=== PATIENT | female | born 1975 | race Two or more races ===

== ENCOUNTER 2025-03-29 06:50 | Day surgery (SDC) | payer OTHER, SELFPAY ==
--- NOTE | 2025-03-28 06:30 | EKG_ITS ---
[facility] Test Date: 2025-03-28 Pat Name: PETER COPELAND Department: Room: - Gender: Female Press Operator: FREEDOM : 1975 Requested By: Robert Florentino Order Number: [id number] Reading MD: Robert Florentino Measurements Intervals [place] Rate: 46 P: 50 DE: 134 QRS: 42 QRSD: 92 T: 68 QT: 478 QTc: 420 Interpretive Statements SINUS BRADYCARDIA No previous ECG available for comparison /[id number]/[id number]
[2025-03-28 07:37] VITALS: BMI 36.1
[2025-03-28 08:32] LABS: Basophils % (Auto) 1 % (0-2.5); Eosinophils # (Auto) 0.3 Thou/mm3 (0.0-0.5); Eosinophils % (Auto) 4 % (0-10); Hematocrit 36.1 % (36.0-46.0); Hemoglobin 12.1 g/dL (12.0-16.0); Immature Granulocytes % (Auto) 0 % (0-0); Immature Granulocytes Auto 0.02 Thou/mm3 (0.00-0.00); Lymphocytes # (Auto) 1.8 Thou/mm3 (1.0-4.8); Lymphocytes % (Auto) 28 % (10-50); Mean Corpuscular HGB Conc 33.5 g/dl (31.0-37.0); Mean Corpuscular Hemoglobin 28.9 pg (25.0-35.0); Mean Corpuscular Volume 86 fL (80-100); Monocytes # (Auto) 0.5 Thou/mm3 (0.0-0.8); Monocytes % (Auto) 7 % (0-12); Neutrophils # (Auto) 3.9 Thou/mm3 (1.8-7.7); Neutrophils % (Auto) 60 % (37-80); Nucleated Red Blood Cell % 0 /100 WBC (0); Platelet Count 305 Thou/mm3 (140-440); RDW Standard Deviation 43.4 fL (36.4-46.3); Red Blood Count 4.18 Miln/mm3 (4.00-5.20); White Blood Count 6.5 Thou/mm3 (3.6-11.0)
[2025-03-28 09:17] LABS: Alanine Aminotransferase 16 U/L (10-49); Albumin, Serum 4.1 gm/dL (3.5-5.0); Albumin/Globulin Ratio 1.5 (1.2-2.2); Alkaline Phosphatase 114 U/L (46-116); Anion Gap 8 (7-16); Aspartate Amino Transferase 18 U/L (0-34); BUN/Creatinine Ratio 18 Ratio (12-20); Bilirubin,Total 0.4 mg/dL (0.3-1.2); Blood Urea Nitrogen 14 mg/dL (9-23); Calcium 8.5 mg/dL (8.3-10.6); Calcium (Corrected) 8.5 mg/dL (8.5-10.1); Carbon Dioxide 27.8 mMol/L (20.0-31.0); Chloride 105 mMol/L (98-107); Creatinine (Component) 0.8 mg/dL (0.6-1.3); Estimated Creatinine Clearance 86.6 mL/min (>60); Globulin 2.8 gm/dL (2.3-3.5); Glucose 99 mg/dL (74-106); Osmolality,Calculated 281 (275-295); Sodium 141 mMol/L (136-145); Total Protein 6.9 gm/dL (5.7-8.2); eGFR > 60 See Note
[2025-03-28 10:55] LABS: Hepatitis A Antibody IgM Non Reactive (Non React); Hepatitis B Surface Antigen Non Reactive (Non React)
[2025-03-28 10:56] LABS: Hepatitis B Core Antibody IgM Non Reactive (Non React); Hepatitis C Antibody Non Reactive (Non React)
[2025-03-28 11:55] LABS: HIV (1&2) Antibody Rapid Non-Reactive
[2025-03-29] VITALS (9 sets, daily range): BP systolic 142–179; BP diastolic 79–95; PULSE 48–61; RESP 12–20; TEMP 36.2–36.4; O2SAT 95–100; BMI 36.2
--- NOTE | 2025-03-29 07:20 | CHAP ---
Visited with patient and had prayer.
--- NOTE | 2025-03-29 10:23 | SUR.PHASEI ---
pt received from OR in recovery bay 7. pt asleep but responds to voice, breathing unlabored on oxymask 8l. v/s stable. pt dressing peripad cdi. report received from Corky CID and Colette LERMA.
[2025-03-29] MEDS: ACETAMINOPHEN IVPB 1,000 MG/100 ML VIAL 250 MG IV (10:44)
--- NOTE | 2025-03-29 10:49 | SUR.PHASEI ---
pt able to tolerate oral fluids without difficulty swallowing or nausea/vomiting.
--- NOTE | 2025-03-29 11:59 | PD.GYNPROC ---
Operative Note - [facility] Procedure Date of procedure: 03/29/25 Procedure Performed: Cervical polypectomy, diagnostic hysteroscopy, fractional D&C Indication: Postmenopausal bleeding Cervical large polyp Pre-Op diagnosis: Same Post-Op diagnosis: Same Anesthesia type: General Procedure description: The patient was seen prior to surgery. The potential benefits and risks of the procedure, the likelihood of success, and the problems related to recuperation have been discussed with patient who agrees to proceed. The possible results of nontreatment and significant alternatives to the proposed procedure have also been explained, along with the risks and benefits of the alternatives. Risks and benefits of chosen anesthetic/sedation and possible use of blood/blood products (if appropriate) were discussed.The patient was identified as Angelika Parks and the procedure verified. A time out was held reviewing the patient identifiers, procedure planned and allergies. At this point the procedure was begun. The patient was positioned and prepped in routine fashion in the dorsal lithotomy position using yellowfin stirups. On examination under anesthesia, there was a large exophytic polyp from the cervix protruding out almost the size of 4 to 5 cm. The uterus along with anterior vaginal wall prolapse was noted stage III pelvic organ prolapse. Bladder was drained by catheter. A weighted speculum was then placed into the patient's posterior vagina. A kole was used to expose the anterior lip of the cervix which was then grasped by a single tooth tenaculum.using a ring forcep on the polyp Endoloop was slighted over the surface to the base and the base of the polyp was tied using the 0 Vicryl using a curved Duff scissors the polyp was removed from its base the cervix was then very easily dilated to a size 6 Hegar dilator. The hysteroscope was then placed under direct visualization. Warm lactated Ringer's was used as a distention medium. The patient's uterus was found to have a normal endometrial cavity pictures were taken. Hysteroscope was removed and we proceeded with dilation and curettage on all 4 jarrett of the uterus. Endometrial curettings were sent for pathology. At the end hemostasis was acheived with a ringed forcep on anterior cervix. Estimated blood loss (ml): 5 Surgical staff Operation Date: 03/29/25 08:45 <No data on this case meets the specified criteria> Diagnosis Problem List Completed Was Problem List Reviewed/Reconciled?: Yes
--- NOTE | 2025-03-29 12:07 | SUR.PHASEII ---
pt awake and alert, breathing unlabored on room air. v/s stable. pt dressing peripad cdi. pt able to ambulate to wheelchair with steady gait. d/c instructions given with Christopher in room, all questions answered. pt d/c via wheelchair with all belongings.
== END 2025-03-29 12:07 | disposition home or self-care (01) ==
PROVIDERS: Anesthesiology; PCP Family Medicine; Referring Provider Student in an Organized Health Care Education/Training Program; Visit Provider Student in an Organized Health Care Education/Training Program
PROC: 0UJD8ZZ Inspection of Uterus and Cervix, Via Natural or Artificial Opening Endoscopic (ICD-10-PCS; CPT 58555; principal; 2025-03-29 08:30)
DX: N84.1 Polyp of cervix uteri (principal); Z01.810 Encounter for preprocedural cardiovascular examination
CPT/HCPCS: 58558; 36415; 80053; 80074; 85025; 86703; 86850; 86900; 86901; 93005; A4217; A4649; J0131; J1100; J2250; J2405; J2704; J3010; J3490